=== PATIENT | female | born 1995 | race African-American/Black ===

== ENCOUNTER 2023-09-03 23:33 | Emergency (ER) | payer SELFPAY ==
[~2023-09-03] VITALS: Ht 170.2 cm; Wt 68.5 kg
[2023-09-03 23:40] VITALS: PULSE 76; RESP 18; TEMP 98.9
[2023-09-04 00:14] LABS: CLARITY,URINE TURBID (CLEAR); COLOR,URINE YELLOW (YELLOW); LEUKOCYTE ESTERASE ,URINE NEGATIVE (NEGATIVE); NITRITE,URINE NEGATIVE (NEGATIVE); PH,URINE 7.5 (5 - 7); PROTEIN,URINE DIPSTICK TRACE (NEGATIVE)
[2023-09-04 00:15] LABS: BILIRUBIN,URINE NEGATIVE (NEGATIVE); GLUCOSE, URINE NEGATIVE (NEGATIVE); KETONES,URINE NEGATIVE (NEGATIVE); URINE UROBILINOGEN 1 mg/dL (0.2 - 1)
[2023-09-04 00:20] LABS: PREGNANCY TEST, URINE POSITIVE (NEGATIVE)
[2023-09-04 00:25] LABS: BACTERIA,URINE MODERATE /HPF; EPITHELIAL CELLS,URINE MANY /LPF; TRANSITIONAL EPI CELLS,URINE FEW; WBC,URINE (MAN) 21-50 /HPF (0-5)
[2023-09-04] MEDS ORDERED: AMOX TR-K CLV1 EAC2 PO (02:23)
[2023-09-04 02:45] VITALS: BP 122/80; PULSE 72; RESP 16; TEMP 98.4; O2SAT 100
== END 2023-09-04 02:41 | disposition home or self-care (01) ==
LOC: ER 23:43
DX: O03.4 Incomplete spontaneous abortion without complication (principal)
CPT/HCPCS: 76801; 76817; 81001; 81025; 99283

== ENCOUNTER 2024-01-21 01:40 | Emergency (ER) | payer OTHER ==
[~2024-01-21] VITALS: Ht 170.2 cm; Wt 65.8 kg
[~2024-01-21 01:40] MED LIST: AMOX TR-K CLV1 EAC2 PO
[2024-01-21 01:57] VITALS: PULSE 79; RESP 18; TEMP 98
[2024-01-21] MEDS ORDERED: METRONIDAZOLE500 MG PO (02:07)
[2024-01-21 02:42] VITALS: BP 117/72; PULSE 79; RESP 18; TEMP 98; O2SAT 100
== END 2024-01-21 02:42 | disposition home or self-care (01) ==
LOC: FSED 01:57
DX: N89.8 Other specified noninflammatory disorders of vagina (principal); J45.909 Unspecified asthma, uncomplicated
CPT/HCPCS: 81025; 99282